=== PATIENT | male | born 1955 | race Caucasian/White ===

== ENCOUNTER 2017-04-20 07:58 | Emergency (ER) | payer MEDICARE ==
[~2017-04-20] VITALS: Ht 180.3 cm; Wt 54.5 kg
[~2017-04-20 07:58] MED LIST: ALBU8.5H8 INH; AMOX-291 PO; ASPI-515 PO; DIPH25CA61 PO; FOLI-17 PO; FURO-93 PO; HYDR12.53 PO; MULT-730 PO; OMEP-110 PO; PHYT5TAB2 PO; TERA1CAP3 PO; THIA100T10 PO; ZOLP-413 PO
[2017-04-20] MEDS ORDERED: SODIUM CHLORIDE FLUSH 10ML SYR IVF ONE (09:00)
[2017-04-20] MEDS ORDERED: HYDROmorphone 1 MG/ML, 1ML IM ONE (09:00)
[2017-04-20] MEDS ORDERED: HYDROmorphone 2 MG/ML, 1ML ONE (09:11)
[2017-04-20] MEDS ORDERED: KETOROLAC 30 MG/1 ML IM ONE (09:30)
[2017-04-20 09:37] VITALS: BP 111/70
== END 2017-04-20 10:55 | disposition home or self-care (01) ==
LOC: ED 09:00
DX: R09.1 Pleurisy (principal); I10 Essential (primary) hypertension; Z86.73 Personal history of transient ischemic attack (TIA), and cerebral infarction without residual deficits; F17.200 Nicotine dependence, unspecified, uncomplicated
CPT/HCPCS: 71045; 93005; 96372; 99284; J1170